=== PATIENT | female | born 1995 | race Caucasian/White ===

== ENCOUNTER → 2024-03-26 | Outpatient (CLI) | payer OTHER ==
[2024-03-26 08:41] LABS: HEMOGLOBIN A1c 5.4 % (4.0-6.0)
[2024-03-26 08:53] LABS: ALBUMIN 3.9 G/DL (3.2-5.2); ALKALINE PHOSPHATASE 61 U/L (46-116); ALT/SGPT 20 U/L (7.0-40); AST/SGOT 10 U/L (<34); BILIRUBIN,TOTAL 0.4 MG/DL (0.3-1.2); BLOOD UREA NITROGEN 11 MG/DL (9-23); CALCIUM LEVEL 9.1 MG/DL (8.5-10.1); CARBON DIOXIDE LEVEL 25 MMOL/L (20-31); CHLORIDE LEVEL 109 MMOL/L (98-107); CREATININE FOR GFR 0.58 MG/DL (0.55-1.30); GLOMERULAR FILTRATION RATE > 60.0 (>60); GLUCOSE, FASTING 105 MG/DL (60-100); POTASSIUM SERUM 4.2 MMOL/L (3.5-5.1); SODIUM LEVEL 139 MMOL/L (136-145); TOTAL PROTEIN 6.7 G/DL (5.7-8.2)
[2024-03-26 08:54] LABS: FOLLICLE STIMULATING HORMONE 3.8 mIU/ML; THYROID STIMULATING HORMONE 1.009 uIU/ML (0.55-4.78)
[2024-03-26 08:55] LABS: FREE T4 1.21 NG/DL (0.89-1.76); LUTEINIZING HORMONE 3.1 mIU/ML
== END ==
LOC: M LAB 07:19
PROVIDERS: ATTEND Nurse Practitioner Adult Health
DX: R73.03 Prediabetes (principal)

== ENCOUNTER → 2024-06-27 | Outpatient (CLI) | payer OTHER | LOC: M WHC 06:50 | PROVIDERS: ATTEND Nurse Practitioner Adult Health | DX: N94.6 Dysmenorrhea, unspecified (principal); N85.2 Hypertrophy of uterus; N83.202 Unspecified ovarian cyst, left side ==

== ENCOUNTER → 2024-11-07 | Outpatient (REF) | payer OTHER | LOC: M PLALAB 10:07 | PROVIDERS: ATTEND Advanced Practice Midwife | DX: Z34.01 Encounter for supervision of normal first pregnancy, first trimester (principal); Z53.9 Procedure and treatment not carried out, unspecified reason ==

== ENCOUNTER → 2024-11-07 | Outpatient (CLI) | payer OTHER ==
[2024-11-07 13:23] LABS: HEMATOCRIT 37.7 % (36.0-47.0); HEMOGLOBIN 13.1 g/dl (12.0-15.5); MEAN CORPUSCULAR HEMOGLOBIN 30.9 pg (27.0-33.0); MEAN CORPUSCULAR HGB CONC 34.7 g/dl (32.0-36.5); MEAN CORPUSCULAR VOLUME 88.9 fl (80.0-96.0); PLATELET COUNT, AUTOMATED 195 10^3/uL (150-450); RED BLOOD COUNT 4.24 10^6/uL (4.00-5.40); WHITE BLOOD COUNT 10.1 10^3/uL (4.0-10.0)
[2024-11-07 14:13] LABS: HIV 1&2 SCREEN NEGATIVE (NEGATIVE)
[2024-11-07 14:21] LABS: HEPATITIS C VIRUS ABY INDEX 0.02 INDEX (<0.8)
== END ==
LOC: M PLALAB 10:18
PROVIDERS: ATTEND Advanced Practice Midwife
DX: Z34.01 Encounter for supervision of normal first pregnancy, first trimester (principal)

== ENCOUNTER → 2024-12-11 | Outpatient (REF) | payer OTHER ==
[2024-12-11 20:36] LABS: Trichomonas vaginalis (AMP) NOT DETECTED (NEGATIVE)
[2024-12-11 20:59] LABS: GC DNA AMPLIFICATION NEGATIVE (NEGATIVE)
== END ==
LOC: M SFHCWAGY 16:40
PROVIDERS: ATTEND Advanced Practice Midwife
DX: Z34.01 Encounter for supervision of normal first pregnancy, first trimester (principal)

== ENCOUNTER → 2025-01-02 | Outpatient (CLI) | payer OTHER | LOC: M WHC 07:35 | PROVIDERS: ATTEND Advanced Practice Midwife | DX: Z34.02 Encounter for supervision of normal first pregnancy, second trimester (principal) ==

== ENCOUNTER → 2025-01-07 | Outpatient (CLI) | payer OTHER ==
[2025-01-07 15:47] LABS: HEMATOCRIT 39.6 % (36.0-47.0); HEMOGLOBIN 13.5 g/dl (12.0-15.5); MEAN CORPUSCULAR HGB CONC 34.1 g/dl (32.0-36.5); MEAN CORPUSCULAR VOLUME 90.8 fl (80.0-96.0); PLATELET COUNT, AUTOMATED 186 10^3/uL (150-450); RED BLOOD COUNT 4.36 10^6/uL (4.00-5.40); WHITE BLOOD COUNT 9.7 10^3/uL (4.0-10.0)
[2025-01-07 16:11] LABS: LDH LACTATE DEHYDROGENASE 173 U/L (120-246)
[2025-01-07 16:12] LABS: ALT/SGPT 36 U/L (7.0-40); AST/SGOT 23 U/L (<34); BILIRUBIN,TOTAL 0.3 MG/DL (0.3-1.2); CREATININE FOR GFR 0.48 MG/DL (0.55-1.30); CREATININE,RANDOM URINE 28.7 MG/DL; GLOMERULAR FILTRATION RATE > 90.0 (>60)
[2025-01-07 16:15] LABS: TOTAL PROTEIN,RANDOM URINE < 6.0 MG/DL (0.0-14.0)
== END ==
LOC: M PLALAB 12:27
PROVIDERS: ATTEND Specialist
DX: Z34.92 Encounter for supervision of normal pregnancy, unspecified, second trimester (principal)

== ENCOUNTER 2025-02-13 19:08 | Outpatient (CLI) | payer OTHER ==
[2025-02-13] VITALS (7 sets, daily range): BP systolic 144–176; BP diastolic 80–93; TEMP 98.9
[~2025-02-13] VITALS: Ht 157.5 cm; Wt 97.7 kg
[~2025-02-13 19:08] MED LIST: ACET-897 PO; PRENTAB9 PO; TUMS750C5 PO
[2025-02-13] MEDS ORDERED: ZYRTTAB8 PO (19:27)
[2025-02-13 20:28] LABS: HEMATOCRIT 38.5 % (36.0-47.0); HEMOGLOBIN 13.3 g/dl (12.0-15.5); MEAN CORPUSCULAR HEMOGLOBIN 31.1 pg (27.0-33.0); MEAN CORPUSCULAR HGB CONC 34.5 g/dl (32.0-36.5); PLATELET COUNT, AUTOMATED 173 10^3/uL (150-450); RED BLOOD COUNT 4.28 10^6/uL (4.00-5.40); WHITE BLOOD COUNT 11.8 10^3/uL (4.0-10.0)
[2025-02-13 20:49] LABS: URIC ACID 5.2 MG/DL (3.1-7.8)
[2025-02-13 20:51] LABS: LDH LACTATE DEHYDROGENASE 165 U/L (120-246)
[2025-02-13 20:52] LABS: ALT/SGPT 19 U/L (7.0-40); AST/SGOT 20 U/L (<34); BILIRUBIN,TOTAL 0.4 MG/DL (0.3-1.2); CREATININE FOR GFR 0.59 MG/DL (0.55-1.30); GLOMERULAR FILTRATION RATE > 90.0 (>60)
[2025-02-13 20:53] LABS: CREATININE,RANDOM URINE 55.6 MG/DL
== END 2025-02-13 21:52 | disposition home or self-care (01) ==
LOC: M LDO 19:08
PROVIDERS: ATTEND Obstetrics & Gynecology
DX: O36.5920 Maternal care for other known or suspected poor fetal growth, second trimester, not applicable or unspecified (principal); O10.012 Pre-existing essential hypertension complicating pregnancy, second trimester; Z91.040 Latex allergy status; Z3A.26 26 weeks gestation of pregnancy

== ENCOUNTER 2025-02-13 22:06 | Outpatient (CLI) | payer OTHER ==
[~2025-02-13] VITALS: Ht 157.5 cm; Wt 97.7 kg
[~2025-02-13 22:06] MED LIST changes: +ZYRTTAB8 PO
[2025-02-13 22:37] VITALS: BP 159/87; TEMP 98.1
[2025-02-13 23:42] VITALS: BP 156/94
[2025-02-14 00:13] VITALS: BP 136/84
== END 2025-02-14 01:32 | disposition home or self-care (01) ==
LOC: M LDO 22:06
PROVIDERS: ATTEND Obstetrics & Gynecology
DX: O36.5920 Maternal care for other known or suspected poor fetal growth, second trimester, not applicable or unspecified (principal); O10.012 Pre-existing essential hypertension complicating pregnancy, second trimester; Z91.040 Latex allergy status; Z3A.26 26 weeks gestation of pregnancy
CPT/HCPCS: 59025; 76816; 76820; 82247; 82570; 83615; 84156; 84450; 84460; 84550; 85027; G0463

== ENCOUNTER 2025-02-21 10:15 | Inpatient (IN) | payer OTHER ==
[~2025-02-21] VITALS: Ht 157.5 cm; Wt 97.3 kg
[2025-02-21] VITALS (34 sets, daily range): BP systolic 112–187; BP diastolic 55–97
[~2025-02-21 10:15] MED LIST changes: -LABE20TAB PO
[2025-02-21] MEDS ORDERED: CARBOPROST TROMETHAMINE 250 MCG/ML AMP IM PRN (11:30)
[2025-02-21] MEDS ORDERED: TRANEXAMIC ACID INJection 1,000 MG in NS 100 ML IV PRN (11:30)
[2025-02-21] MEDS ORDERED: METHYLERGONOVINE MALEATE 0.2 MG/ML 1 ML VIAL IM PRN (11:30)
[2025-02-21] MEDS ORDERED: OXYTOCIN INJ 10UNITS/ML 1ML VIAL IV PRN (11:30)
[2025-02-21] MEDS ORDERED: OXYTOCIN INJ 10UNITS/ML 1ML VIAL IM PRN (11:30)
[2025-02-21] MEDS ORDERED: OXYTOCIN DRIP 30 UNITS in IV 1 EA IV PRN ×3 (11:30)
[2025-02-21] MEDS ORDERED: LIDOCAINE 1% MDV 20 ML VIAL INFIL PRN (11:30)
[2025-02-21 11:36] LABS: PLATELET COUNT, AUTOMATED 175 10^3/uL (150-450)
[2025-02-21 11:38] LABS: LDH LACTATE DEHYDROGENASE 266 U/L (120-246)
[2025-02-21 11:39] LABS: ALT/SGPT 20 U/L (7.0-40); AST/SGOT 23 U/L (<34); CREATININE FOR GFR 0.58 MG/DL (0.55-1.30); GLOMERULAR FILTRATION RATE > 90.0 (>60)
[2025-02-21 12:25] LABS: BASO # 0.0 10^3/uL (0.0-0.2); BASO % 0.3 % (0.0-1.0); EOS # 0.0 10^3/uL (0.0-0.5); EOS % 0.2 % (0.0-3.0); LYMPH # 2.9 10^3/uL (1.5-5.0); LYMPH % 24.9 % (24.0-44.0); MONO # 0.8 10^3/uL (0.0-0.8); MONO % 6.5 % (2.0-8.0); NEUTROPHILS # 7.9 10^3/uL (1.5-8.5); NEUTROPHILS % 67.4 % (36.0-66.0); PLATELET COUNT, AUTOMATED 162 10^3/uL (150-450)
[2025-02-21 12:47] LABS: DRVV SCREEN 27.5 SECONDS; PTT LUPUS TYPE ANTICOAG SCREEN 0.72 (0-1.20)
[2025-02-21 12:54] LABS: THYROXINE (T4) 10.7 UG/DL (4.5-10.9)
[2025-02-21 15:16] LABS: KETONE, URINE AUTO RFX NEGATIVE (NEGATIVE); MUCUS, URINE RFX SMALL (NEGATIVE); NITRITE, URINE AUTO RFX NEGATIVE (NEGATIVE); RBC, URINE AUTO RFX 0 /HPF (0-3); SQUAM EPITHELIAL CELL UR AURFX 1 /HPF (0-6); WBC, URINE AUTO RFX 1 /HPF (0-3)
[2025-02-21 15:17] LABS: LEUKOCYTE ESTERASE UR AUTO RFX 2+ (NEGATIVE)
[2025-02-21] MEDS: PROMETHAZINE 25MG/ML 1ML VIAL IV ONE (15:37)
[2025-02-21] MEDS: BUTORPHANOL 2 MG/ML 1 ML VIAL IV ONE (15:37)
[2025-02-21 15:38] LABS: TOTAL PROTEIN,RANDOM URINE 38.8 MG/DL (0.0-14.0)
[2025-02-21] MEDS: LABETALOL 200 MG TAB PO SCH (15:47)
[2025-02-21] MEDS ORDERED: NALOXONE INJ 0.4MG/1ML VIAL IV PRN (17:15)
[2025-02-21] MEDS ORDERED: ONDANSETRON 4MG 2ML VIAL IV PRN (17:15)
[2025-02-21] MEDS ORDERED: LR 500 ML IV PRN (17:15)
[2025-02-21] MEDS ORDERED: EPIDURAL/PCA KEYS XX PRN (17:15)
[2025-02-21] MEDS ORDERED: diphenhydrAMINE 50 MG/ML VIAL IV PRN (17:15)
[2025-02-21] MEDS: LR 1,000 ML IV SCH (17:32)
[2025-02-21] MEDS: FENTANYL/ROPIVACAINE/NACL BAG 100 ML EPIDURAL SCH (17:48)
[2025-02-21] MEDS: NIFEdipine 10 MG CAP PO SCH (18:03)
[2025-02-21] MEDS ORDERED: LABETALOL 100 MG/20 ML VIAL As Ordered ONE (19:02)
[2025-02-21] MEDS: LABETALOL 100 MG/20 ML VIAL IV STA (19:09)
[2025-02-21] MEDS ORDERED: LABETALOL 200 MG TAB PO SCH (21:00)
[2025-02-22 06:27] VITALS: BP 133/74
[2025-02-22] MEDS ORDERED: LABE20TAB PO (07:47)
[2025-02-22 09:12] VITALS: BP 139/75
[2025-02-22 09:15] VITALS: BP 139/75
[2025-02-25 22:55] LABS: CARDIOLIPIN IGA ANTIBODY < 2.0 APL-U/mL (<20.0); CARDIOLIPIN IGG ANTIBODY < 2.0 GPL-U/mL (<20.0); CARDIOLIPIN IGM ANTIBODY < 2.0 MPL-U/mL (<20.0)
[2025-02-27 02:11] LABS: BETA-2 GLYCOPROTEIN I ABY IGA < 2.0 U/mL (<20.0); BETA-2 GLYCOPROTEIN I ABY IGG < 2.0 U/mL (<20.0); BETA-2 GLYCOPROTEIN I ABY IGM < 2.0 U/mL (<20.0)
[2025-02-28 23:20] LABS: ANTI PARVO VIRUS LEVEL IGG 0.0 (<0.9); ANTI PARVO VIRUS LEVEL IgM 0.1 (<0.9)
== END 2025-02-22 09:23 | disposition home or self-care (01) | DRG 806 ==
LOC: M LDO 10:15 → M LDI 10:29
PROVIDERS: ADMIT Obstetrics & Gynecology; ATTEND Obstetrics & Gynecology
PROC: 10E0XZZ Delivery of Products of Conception, External Approach (ICD-10-PCS; principal; 2025-02-21)
PROC: 3E0P7GC Introduction of Other Therapeutic Substance into Female Reproductive, Via Natural or Artificial Opening (ICD-10-PCS; 2025-02-21)
DX: O36.4XX0 Maternal care for intrauterine death, not applicable or unspecified (principal); Z37.1 Single stillbirth; O14.02 Mild to moderate pre-eclampsia, second trimester; Z3A.27 27 weeks gestation of pregnancy; O32.1XX0 Maternal care for breech presentation, not applicable or unspecified

== ENCOUNTER → 2025-02-21 | Outpatient (CLI) | payer OTHER ==
[~2025-02-21] MED LIST changes: +LABE20TAB PO
== END ==
LOC: M WHC 09:28
PROVIDERS: ATTEND Obstetrics & Gynecology
DX: O36.4XX0 Maternal care for intrauterine death, not applicable or unspecified (principal); O36.5920 Maternal care for other known or suspected poor fetal growth, second trimester, not applicable or unspecified; Z3A.27 27 weeks gestation of pregnancy

== ENCOUNTER 2025-03-19 10:59 | Emergency (ER) | payer OTHER ==
[~2025-03-19] VITALS: Ht 165.1 cm; Wt 96.0 kg
[~2025-03-19 10:59] MED LIST changes: +LABE20TAB PO
[2025-03-19 11:46] LABS: BASO # 0.0 10^3/uL (0.0-0.2); BASO % 0.3 % (0.0-1.0); EOS # 0.1 10^3/uL (0.0-0.5); EOS % 1.1 % (0.0-3.0); LYMPH # 2.0 10^3/uL (1.5-5.0); LYMPH % 25.6 % (24.0-44.0); MONO # 0.4 10^3/uL (0.0-0.8); MONO % 5.2 % (2.0-8.0); NEUTROPHILS # 5.4 10^3/uL (1.5-8.5); NEUTROPHILS % 67.5 % (36.0-66.0); PLATELET COUNT, AUTOMATED 248 10^3/uL (150-450)
[2025-03-19] MEDS ORDERED: LABE100T6 PO (11:50)
[2025-03-19] MEDS ORDERED: HOME MED LIST COMPLETE! XX SCH (11:50)
[2025-03-19 11:58] LABS: INR 0.88
[2025-03-19 12:14] LABS: CK-MB VALUE MASS 1.0 NG/ML (<3.6)
[2025-03-19 12:15] LABS: ALT/SGPT 41 U/L (7.0-40); AST/SGOT 27 U/L (<34); CALCIUM LEVEL 9.5 MG/DL (8.5-10.1); CARBON DIOXIDE LEVEL 26 MMOL/L (20-31); CHLORIDE LEVEL 106 MMOL/L (98-107); CREATININE FOR GFR 0.65 MG/DL (0.55-1.30); GLOMERULAR FILTRATION RATE > 90.0 (>60); POTASSIUM SERUM 4.4 MMOL/L (3.5-5.1); SODIUM LEVEL 144 MMOL/L (136-145)
[2025-03-19 12:20] LABS: CPK CREATINE PHOSPHOKINASE 115 U/L (34-145); MB/CK RELATIVE INDEX 0.86 (< OR =4)
[2025-03-19] MEDS ORDERED: ISOVUE-370 76% 100 ML VIAL As Ordered ONE (12:32)
[2025-03-19 12:44] VITALS: BP 140/82
[2025-03-19 12:59] VITALS: TEMP 97.9; O2SAT 96
[2025-03-19] MEDS ORDERED: ZITHTAB PO (13:06)
[2025-03-19] MEDS ORDERED: AMOX875T2 PO (13:06)
== END 2025-03-19 13:18 | disposition home or self-care (01) ==
LOC: M ED 10:59
DX: J18.9 Pneumonia, unspecified organism (principal); Z91.040 Latex allergy status; Z79.2 Long term (current) use of antibiotics; Z79.899 Other long term (current) drug therapy
CPT/HCPCS: 36415; 71045; 71046; 71275; 80048; 80076; 82550; 82553; 83690; 84484; 85025; 85610; 87486; 87581; 87633; 87798; 93005; 93041; 94760; 99284; Q9967